=== PATIENT | male | born 1985 | race Caucasian/White ===

== ENCOUNTER → 2025-09-21 07:17 | Outpatient (CLI) | payer OTHER, SELFPAY ==
--- NOTE | 2025-09-21 07:23 | DI.MRI.S_ITS ---
PROCEDURE: MR CERVICAL SPINE WO/W CON INDICATIONS: Abnormal findings on diagnostic imaging of other s TECHNIQUE: Noncontrast sagittal T1 spin echo and T2 fast spin echo, sagittal STIR, sagittal PD fast spin echo, foraminal oblique sagittal T2 fast spin echo, axial gradient echo or T2 fast spin echo through the cervical spine. After the administration of contrast, sagittal and axial T1 spin echo with fat saturation through the cervical spine. COMPARISON: [facility], MR, MR CERVICAL SPINE WITHOUT CONTRAST, 09/09/2025, 11:10. FINDINGS: Image quality: Excellent. Alignment and curvature: There is normal bony alignment. Marrow: Stable C4 vertebral body lesion without associated enhancement. Spinal cord: T2 hyperintense focus within the right aspect of the cord at C4-C5 is redemonstrated and likely represent spinal malacia. No associated enhancement.. No suspicious intramedullary enhancement. No cerebellar tonsillar herniation. Paraspinous soft tissues: No paravertebral masses or suspicious enhancement. Prominent left level 3 lymph node measuring 11 mm in short axis (4/28). Redemonstration of degenerative changes with severe central canal stenosis at C4-C5. IMPRESSION: Stable C4 vertebral body lesion without associated enhancement. Consider atypical hemangioma. T2 hyperintense lesion at the right aspect of the cord at C4-C5 without associated Micky min, most consistent with myelomalacia. Redemonstration of degenerative changes as described previously, most pronounced at C4-C5 with severe central canal stenosis. Dictated by: Too Aguirre M.D. on 09/21/2025 at 11:01 Approved by: Too Aguirre M.D. on 09/21/2025 at 11:07
== END ==
DX: R93.89 Abnormal findings on diagnostic imaging of other specified body structures (principal); M48.02 Spinal stenosis, cervical region
CPT/HCPCS: 72156; A9579